=== PATIENT | male | born 1985 | race Caucasian/White ===

== ENCOUNTER 2020-10-26 08:30 | Emergency (ER) | payer OTHER, SELFPAY ==
[2020-10-26 08:37] VITALS: BP 111/61; PULSE 88; RESP 18; TEMP 36.6; O2SAT 100
--- NOTE | 2020-10-26 08:44 | ED.GENADULT ---
HPI - General Adult General Chief complaint: Wound/Laceration Stated complaint: left pinky lac Time Seen by Provider: 10/26/20 08:44 Source: patient Mode of arrival: ambulatory Limitations: no limitations History of Present Illness HPI narrative: 35-year-old male patient presents to the [facility] with complaints of a laceration to the distal end of the left pinky as well as some superficial lacerations to the left index and left middle finger. Patient states he is unaware of when his last tetanus shot was states that he thinks it is definitely over 5 years. Patient states he was at work today and sliced it on a metal barrel. Patient states that happened about 30 minutes prior to arrival today. Related Data Home Medications Medication Instructions Recorded Confirmed levomilnacipran [Fetzima] 40 mg PO DAILY 10/26/20 10/26/20 lurasidone [Latuda] 20 mg PO DAILY 10/26/20 10/26/20 Allergies Allergy/AdvReac Type Severity Reaction Status Date / Time No Known Allergies Allergy Verified 10/26/20 08:54 Review of Systems Review of Systems: Narrative: CONSTITUTIONAL: Denies fever, chills, or sweats. EYES: Denies visual changes, redness, or discharge. ENT: Denies rhinorrhea, congestion, sore throat, or otalgia. CARDIOVASCULAR: Denies chest pain, palpitations, or edema. RESPIRATORY: Denies cough or dyspnea. GASTROINTESTINAL: Denies abdominal pain, nausea, vomiting, or diarrhea. GENITOURINARY: Denies dysuria or hematuria. SKIN: Denies rash or itching. Positive laceration to left pinky, left index and left middle finger MUSCULOSKELETAL: Denies back pain, joint pain, or myalgia. NEUROLOGIC: Denies headache, numbness, or weakness. PSYCHIATRIC: Denies anxiety or depression. [facility] Past Medical History Medical History (Updated 10/26/20 @ 09:02 by MAURICIO Dailey) Closed arm fracture History of surgery Depression Fractured nose History of surgery Comments At the time of my signature I agree with nursing past medical history, surgical, social, and family history. There is no relevant family history pertinent to the presenting complaint. Exam Narrative: Exam Narrative: GENERAL: Well-appearing, well-nourished, and in no acute distress. HEAD: Normocephalic, atraumatic. EYES: PERRLA and EOMI. ENT: Nares clear, no rhinorrhea or epistaxis. Mucous membranes moist. NECK: Supple. No lymphadenopathy CHEST: Clear to auscultation. No respiratory distress. HEART: Regular rate and rhythm. No murmur heard. Normal peripheral pulses. ABDOMEN: Soft, nontender, nondistended, normal active bowel sounds. EXTREMITIES: Normal range of motion. No edema. SKIN: Warm, dry, no rash. Patient has approximately 1 cm superficial laceration to the left pinky on the palm side above the DIP joint. There is no active bleeding at this time. Patient has excellent range of motion to the finger and good cap refill as well as good sensation present. Patient also has a very superficial laceration noted to the left index finger above the DIP joint on the palm side with no active bleeding present. Patient has another superficial laceration noted to the left middle finger over the DIP joint with no active bleeding present at this time. Patient has good sensation and good cap refill on all fingertips on the left hand. NEURO: No focal deficits. Alert and oriented x3. Course Vital Signs Vital signs: Vital Signs Temperature 36.6 C 10/26/20 08:37 Pulse Rate 88 10/26/20 08:37 Respiratory Rate 18 10/26/20 08:37 Blood Pressure 111/61 10/26/20 08:37 Pulse Oximetry 100 10/26/20 08:37 Temperature 36.6 C 10/26/20 08:37 Pulse Rate 88 10/26/20 08:37 Respiratory Rate 18 10/26/20 08:37 Blood Pressure 111/61 10/26/20 08:37 Pulse Oximetry 100 10/26/20 08:37 Vital signs reviewed Procedures Laceration Laceration 1: Date: 10/26/20 Time: 08:57 Site: hand (Pinky finger) Side (If applicable): left Size (cm
[2020-10-26] MEDS: TETANUS,DIPHTHERIA,AC PERTUSSIS ADULT (0.5 ML) BOOSTRIX IM (08:58)
== END 2020-10-26 09:20 | disposition home or self-care (01) ==
PROVIDERS: Emergency Provider Nurse Practitioner Family; PCP Internal Medicine
DX: S61.217A Laceration without foreign body of left little finger without damage to nail, initial encounter (principal); S61.213A Laceration without foreign body of left middle finger without damage to nail, initial encounter; S61.211A Laceration without foreign body of left index finger without damage to nail, initial encounter; W26.8XXA Contact with other sharp object(s), not elsewhere classified, initial encounter; Y99.0 Civilian activity done for income or pay; Z23 Encounter for immunization; F32.9 Major depressive disorder, single episode, unspecified
CPT/HCPCS: 12001; 90471; 90715; 99212; G0463